=== PATIENT | male | born 1995 | race African-American/Black ===

== ENCOUNTER 2021-06-18 22:37 | Emergency (ER) | payer MEDICAID ==
[~2021-06-18] VITALS: Ht 180.3 cm; Wt 84.0 kg
[2021-06-18] MEDS ORDERED: SODIUM CHLORIDE 0.9% 1,000 ML IV ONE (23:15)
[2021-06-18] MEDS ORDERED: ONDANSETRON HCL 4MG/2ML INJ IV STA (23:15)
[2021-06-18] MEDS ORDERED: FENTANYL CITRATE/PF 50MCG/ML 2ML VIAL IV ONE (23:15)
[2021-06-19 00:20] LABS: CHLORIDE 107 mEq/L (98-107)
[2021-06-19 03:36] VITALS: BP 140/68
[2021-06-19] MEDS ORDERED: IBUP-2029 MT (03:44)
[2021-06-19] MEDS ORDERED: IOHEXOL-300 100 ML BOTTLE ONE (05:30)
== END 2021-06-19 04:47 | disposition home or self-care (01) ==
LOC: ER 22:37
DX: M54.59 Other low back pain (principal); M54.2 Cervicalgia; R07.89 Other chest pain; M79.631 Pain in right forearm; M25.511 Pain in right shoulder; F12.10 Cannabis abuse, uncomplicated; Z71.51 Drug abuse counseling and surveillance of drug abuser
CPT/HCPCS: 36415; 70450; 71045; 71260; 72125; 73030; 73060; 73090; 74177; 80053; 86850; 86900; 86901; 96361; 96374; 96375; 99285; J2405; J3010; J7030; Q9967